=== PATIENT | female | born 1945 | race Caucasian/White ===

== ENCOUNTER 2020-01-07 11:46 | Emergency (ER) | payer MEDICARE, SELFPAY ==
--- NOTE | ~2020-01-07 | CT_ITS ---
EXAMINATION: CT brain wo con DATE: 01/07/2020 13:35 INDICATION: Fall. Head trauma. TECHNIQUE: Computed tomography (CT) of the head was performed without intravenous contrast. The mA wa s adjusted according to patient size. Iterative reconstruction technique was employed. Exam dose: 60 5.33 mGy-cm total exam DLP. COMPARISON: None FINDINGS: No intracranial mass lesion or hemorrhage or recent cerebrovascular accident. No midline sh ifts or mass effects. There are bilateral carotid siphon internal carotid artery calcifications. There is moderate cerebral volume loss, consistent with patient age. No subdural or epidural hematoma is detected. No orbital mass lesion. Included paranasal sinuses and mastoid air cells are normally developed and aerated. No fracture or bone destruction of the cranial vault. IMPRESSION: No evidence of skull fracture or acute intracranial abnormality Reviewed, dictated and finalized at [facility]. Reviewed, dictated and finalized at [facility].
--- NOTE | ~2020-01-07 | CT_ITS ---
EXAMINATION: CT pelvis w con DATE: 01/07/2020 13:35 INDICATION: Fall. Left pelvic hematoma TECHNIQUE: Computed tomography (CT) of the pelvis was performed without intravenous contrast. Automat ed exposure control and iterative reconstruction technique were employed. Exam dose: 791.10 mGy-cm t otal exam DLP. COMPARISON: None FINDINGS: Prominent hematoma and fat stranding are noted in the left buttock along the posterior supe rior aspect of the gluteal muscles. There is a prominent of fecal material in the rectosigmoid area. There are numerous diverticula of th e sigmoid and descending colon. No associated evidence of diverticulitis. Status post hysterectomy. The urinary bladder is unremarkable. No pelvic mass lesion or abnormal pelv ic fluid collection is evident. No pelvic lymphadenopathy. Severe degenerative disc disease at L3-4 and L5-S1. Moderate degenerative disc disease at L4-5. There is prominent degenerative change at the apophyseal joints of the lower lumbar and lumbosacral area w ith associated grade 1 anterolisthesis at L4-5. [id number] osteoarthritic change at the hips. No pelvic fracture or bone destruction is evident. IMPRESSION: Prominent left buttock hematoma; no pelvic fracture identified Diverticulosis of the sigmoid and descending colon; no CT evidence of diverticulitis Prominent degenerative changes of the lumbosacral area. Osteoarthritis of the hips. Reviewed, dictated and finalized at [facility]. Reviewed, dictated and finalized at [facility]. IMPRESSION: Prominent left buttock hematoma; no pelvic fracture identified Diverticulosis of the sigmoid and descending colon; no CT evidence of diverticu litis Prominent degenerative changes of the lumbosacral area. Osteoarthritis of the h ips.
[2020-01-07 11:54] VITALS: BP 170/76; PULSE 79; RESP 18; TEMP 36.8; O2SAT 99
[2020-01-07] MEDS: MORPHINE SULFATE 4 MG/ML INJ IV PUSH (12:50)
[2020-01-07 12:55] VITALS: BP 168/84; PULSE 77; RESP 16; O2SAT 98
[2020-01-07 12:58] LABS: Basophils Absolute Auto 0.1 K/mm3 (0.0-0.1); Basophils Percent Auto 1.4 % (0.2-1.2); Eosinophils Absolute Auto 0.2 K/mm3 (0-0.3); Eosinophils Percent Auto 2.8 % (0-4.4); Hematocrit 42.8 % (37.0-47.0); Hemoglobin 13.6 g/dL (12.0-15.0); Immature Granulocyte Absolute 0.17 K/mm3 (0.00-0.031); Immature Granulocyte Percent A 2.1 % (0-0.5); Lymphocytes Percent Auto 11.1 % (18.3-44.2); Mean Corpuscular HGB Conc 31.8 g/dl (32-36); Mean Corpuscular Hemoglobin 26.7 pg (26-34); Mean Corpuscular Volume 83.9 fl (80-100); Mean Platelet Volume 12.5 fl (7.4-10.4); Monocytes Absolute Auto 0.4 K/mm3 (0.1-0.6); Monocytes Percent Auto 5.2 % (2.6-8.5); Neutrophils Absolute Auto 6.3 K/mm3 (1.3-6.7); Neutrophils Percent Auto 77.4 % (45.5-73.1); Nucleated Red Blood Cells Perc 0.2 % (0.0-0.2); Platelet Count Result 357 k/mm3 (150-375); Red Cell Distribution Width 19.3 % (11.5-14.5); White Blood Count 8.1 K/mm3 (4.5-10.0)
[2020-01-07 13:10] LABS: Blood Urea Nitrogen 16 mg/dL (7-17); Calcium 9.9 mg/dL (8.4-10.2); Carbon Dioxide 28 mmol/L (22-30); Chloride 105 mmol/L (98-107); Estimated CRCL calculation 51 ml/min; Estimated Glomerular Filt Rate > 60; Glucose 80 mg/dL (65-105); Potassium 4.5 mmol/L (3.4-5.0); Sodium 137 mmol/L (137-145)
--- NOTE | 2020-01-07 13:44 | ED.GENADULT ---
HPI - General Adult General Chief complaint: Fall Stated complaint: FALL Time Seen by Provider: 01/07/20 12:13 History of Present Illness HPI narrative: Patient is a 74-year-old female who presents the ER after a fall that occurred yesterday. She was transferring stuff between 2 boats when she broke her sandal and fell. She struck her head right by the left eye. She did not lose consciousness. She then fell backwards and struck her back against a boat. While riding home she noticed that pain over her left hip and buttock was increasing. When she woke up today she had swelling and pain as well as a large amount of bruising to that posterior aspect of the left hip and buttock. No numbness or tingling to the lower extremities. She has no changes in vision or hearing or headache. She does have a bruise around her left eye. She is not on a blood thinner. Related Data Allergies Allergy/AdvReac Type Severity Reaction Status Date / Time No Known Allergies Allergy Verified 01/07/20 11:59 Review of Systems Review of Systems: All systems reviewed & are unremarkable except as noted in HPI and below Constitutional: Constitutional: Denies chills, Denies fever(s) and Denies weakness Eyes: Eyes: Denies change in vision and Denies photophobia ENT: Denies nasal congestion and Denies sore throat Cardiovascular: Cardiovascular: Denies chest pain, Denies radiating jaw, neck or arm pain and Denies slow heart rate Respiratory: Respiratory: Denies cough and Denies dyspnea Gastrointestinal: Gastrointestinal: Denies abdominal pain, Denies nausea and Denies vomiting Neurologic: Denies confusion, Denies dizziness, Denies headache(s), Denies focal weakness and Denies numbness PMFSH Past Medical History Medical History (Updated 01/07/20 @ 15:45 by Evan Caicedo MD) Healthy female adult Surgical History Surgical History (Updated 01/07/20 @ 15:43 by Evan Caicedo MD) No pertinent past surgical history Social History Social History (Updated 01/07/20 @ 15:43 by Evan Caicedo MD) Smoking status: Never smoker Gender identity (if verbalized by the patient): Female Exam Narrative: Exam Narrative: GENERAL: Well-appearing, well-nourished, and in no acute distress. HEAD: Normocephalic, atraumatic. ENT: Mucous membranes moist. Contusion around the left eye. CHEST: Clear to auscultation. No respiratory distress. HEART: Regular rate and rhythm. Normal peripheral pulses. ABDOMEN: Soft, nontender, nondistended. EXTREMITIES: Normal range of motion. No edema. Palpable hematoma posterior left buttock with overlying contusion. Pain with range of motion of the left hip. Back: No midline tenderness of the thoracic or lumbar spine. SKIN: Warm, dry, no rash. NEURO: Alert and oriented x3. Course Course Emergency Course: Patient informed of results. She has been up and ambulatory without issue. Discharge home. Vital Signs Vital signs: Vital Signs Temperature 98.2 F 01/07/20 11:54 Pulse Rate 79 01/07/20 11:54 Respiratory Rate 18 01/07/20 11:54 Blood Pressure 170/76 H 01/07/20 11:54 Pulse Oximetry 99 01/07/20 11:54 Temperature 98.2 F 01/07/20 11:54 Pulse Rate 77 01/07/20 12:55 Respiratory Rate 16 01/07/20 12:55 Blood Pressure 168/84 H 01/07/20 12:55 Pulse Oximetry 98 01/07/20 12:55 Medical Decision Making Vital Signs Vital Signs: Vital Signs Temperature 98.2 F 01/07/20 11:54 Pulse Rate 79 01/07/20 11:54 Respiratory Rate 18 01/07/20 11:54 Blood Pressure 170/76 H 01/07/20 11:54 Pulse Oximetry 99 01/07/20 11:54 Temperature 98.2 F 01/07/20 11:54 Pulse Rate 77 01/07/20 12:55 Respiratory Rate 16 01/07/20 12:55 Blood Pressure 168/84 H 01/07/20 12:55 Pulse Oximetry 98 01/07/20 12:55 Lab Data Result diagrams: 01/07/20 12:51 01/07/20 12:51 Labs: Lab Results 01/07/20 01/07/20 Range/Units 12:51 12:51 WBC 8.1
[2020-01-07 16:14] VITALS: BP 146/88; PULSE 88; RESP 16; O2SAT 97
== END 2020-01-07 16:00 | disposition home or self-care (01) ==
PROVIDERS: Emergency Provider Emergency Medicine
DX: S30.0XXA Contusion of lower back and pelvis, initial encounter (principal); S05.92XA Unspecified injury of left eye and orbit, initial encounter; K57.30 Diverticulosis of large intestine without perforation or abscess without bleeding; M16.0 Bilateral primary osteoarthritis of hip; W01.198A Fall on same level from slipping, tripping and stumbling with subsequent striking against other object, initial encounter
CPT/HCPCS: 36415; 70450; 72193; 80048; 85025; 96374; 99284; J2270; Q9967

== ENCOUNTER → 2022-10-19 11:58 | Outpatient (CLI) | payer MEDICARE, SELFPAY ==
--- NOTE | ~2022-10-19 | XR_ITS ---
Corrected Report Correction to Ordering Provider 10/19/2022 Larry This report was recreated on 10/19/2022. Original report was signed by Shin Jasso M.D. on 10/19/2022 13:13 CDT. [id number] DATE: 10/19/2022 12:45 INDICATION: Right knee pain TECHNIQUE: Standing AP and lateral views COMPARISON: None FINDINGS: Status post right total hip arthroplasty with normal alignment. There is osteopenia. No fracture or dislocation or joint effusion is detected. No periosteal reaction or bone destruction. IMPRESSION: Status post right total knee arthroplasty Osteopenia Reviewed, dictated and finalized at [facility]. Reviewed, dictated and finalized at [facility]. MTDD
== END ==
PROVIDERS: PCP Family Medicine; Visit Provider Nurse Practitioner Family
DX: M85.861 Other specified disorders of bone density and structure, right lower leg (principal)
CPT/HCPCS: 73560